=== PATIENT | female | born 1975 | race Caucasian/White ===

== ENCOUNTER → 2023-06-11 | Day surgery (SDC) | payer BC, OTHER | END | disposition home or self-care (01) | LOC: JRADIR 10:17 | PROVIDERS: ATTEND Internal Medicine Endocrinology, Diabetes & Metabolism | PROC: 0G9K3ZX Drainage of Thyroid Gland, Percutaneous Approach, Diagnostic (ICD-10-PCS; principal; 2023-06-11) | DX: E04.1 Nontoxic single thyroid nodule (principal) | CPT/HCPCS: 10005; 76942; 88173; 88305-TC ==

== ENCOUNTER 2023-06-16 23:12 | Emergency (ER) | payer OTHER ==
[2023-06-16 23:31] VITALS: BP 135/78; PULSE 120; RESP 20; TEMP 98.9; BMI 33.0
[2023-06-16] MEDS ORDERED: KETOROLAC TROMETHAMINE 30 MG/1 ML VIAL ONE (23:55)
[2023-06-16] MEDS ORDERED: KETOROLAC TROMETHAMINE 30 MG/1 ML VIAL IM ONE (23:55)
== END 2023-06-17 00:57 | disposition home or self-care (01) ==
LOC: JER 23:12 → JERFT 23:12
PROC: 3E0233Z Introduction of Anti-inflammatory into Muscle, Percutaneous Approach (ICD-10-PCS; principal; 2023-06-16)
DX: U07.1 COVID-19 (principal)
CPT/HCPCS: 0241U-QW; 99284-25

== ENCOUNTER 2023-06-19 06:12 | Emergency (ER) | payer OTHER ==
[2023-06-19 06:50] VITALS: RESP 20; BMI 32.7
[2023-06-19] MEDS ORDERED: ONDANSETRON 4 MG/2 ML VIAL IVPUSH ONE ×2 (07:26→07:40)
[2023-06-19] MEDS ORDERED: ACETAMINOPHEN 1000 MG/100 ML BAG IVPB ONE (07:26)
[2023-06-19] MEDS ORDERED: FAMOTIDINE 20 MG/50 ML IVPB 20 MG/50 ML MG IVPB ONE ×2 (07:35→07:46)
[2023-06-19] MEDS ORDERED: LACTATED RINGERS SOLUTION 1000 ML INFUS.BAG IV ONE (07:45)
[2023-06-19] MEDS ORDERED: ACETAMINOPHEN INJECTION 100 ML IVPB ONE (07:46)
[2023-06-19] MEDS ORDERED: ONDANSETRON 4 MG/2 ML VIAL ONE (07:46)
[2023-06-19] MEDS ORDERED: MAG HYDROX/AL HYDROX/SIMETH 30 ML UNIT-DOSE CUP PO ONE (08:12)
[2023-06-19] MEDS ORDERED: SUCRALFATE 1 GM TABLET (FP) PO ONE (08:14)
[2023-06-19] MEDS ORDERED: SUCRALFATE 1 GM TABLET (FP) ONE (08:23)
[2023-06-19] MEDS ORDERED: MAG HYDROX/AL HYDROX/SIMETH 30 ML UNIT-DOSE CUP ONE (08:24)
[2023-06-19 08:30] LABS: BASO % 0.2 % (0-2.0); HEMATOCRIT 35.9 % (32.4-45.2); HEMOGLOBIN 11.6 GM/dL (10.7-15.3); LYMPH % 20.7 % (8-40); MCH 25.8 pg (25.7-33.7); MCHC 32.3 g/dl (32.0-36.0); MEAN CELL VOLUME 80.1 fl (80-96); MEAN PLT VOLUME 8.4 fl (7.5-11.1); MONO % 7.7 % (3.8-10.2); NEUT % 71.4 % (42.8-82.8); PLATELET COUNT 345 10^3/uL (134-434); RBC 4.49 M/mm3 (3.60-5.2); RDW 17.7 % (11.6-15.6); WHITE BLOOD COUNT 6.8 K/mm3 (4.0-10.0)
[2023-06-19 08:47] LABS: POTASSIUM 3.5 mmol/L (3.5-5.1)
[2023-06-19 08:49] LABS: CALCIUM 8.3 mg/dL (8.5-10.1)
[2023-06-19 08:51] LABS: ALBUMIN 3.3 g/dl (3.4-5.0); BLOOD UREA NITROGEN 7.7 mg/dL (7-18); MAGNESIUM 1.9 mg/dL (1.8-2.4)
[2023-06-19 08:53] LABS: CREATININE 0.7 mg/dL (0.55-1.3)
[2023-06-19 08:54] LABS: BILIRUBIN,TOTAL 0.3 mg/dL (0.2-1); TOT PROT 7.1 g/dl (6.4-8.2)
[2023-06-19 09:25] LABS: EPI CELLS 23 /uL (0-25.1); HYALINE CASTS 0 /uL (0-3.1); URINE APPEARANCE CLEAR; URINE BACTERIA 7 /uL (0-1359); URINE BILIRUBIN NEGATIVE (NEGATIVE); URINE COLOR YELLOW; URINE GLUCOSE (UA) NEGATIVE (NEGATIVE); URINE KETONE NEGATIVE (NEGATIVE); URINE LEUK ESTERASE NEGATIVE (NEGATIVE); URINE NITRITE NEGATIVE (NEGATIVE); URINE PROTEIN NEGATIVE (NEGATIVE); URINE RBC 29 /uL (0-23.9); URINE UROBILINOGEN 0.2 mg/dL (0.2-1.0); URINE WBC 12 /uL (0-25.8)
[2023-06-19 11:29] VITALS: TEMP 98
[2023-06-19 13:36] VITALS: BP 106/71; PULSE 71
== END 2023-06-19 13:36 | disposition home or self-care (01) ==
LOC: JER 06:12
PROC: 3E033GC Introduction of Other Therapeutic Substance into Peripheral Vein, Percutaneous Approach (ICD-10-PCS; principal; 2023-06-19)
PROC: 3E033NZ Introduction of Analgesics, Hypnotics, Sedatives into Peripheral Vein, Percutaneous Approach (ICD-10-PCS; 2023-06-19)
PROC: 3E033GC Introduction of Other Therapeutic Substance into Peripheral Vein, Percutaneous Approach (ICD-10-PCS; 2023-06-19)
DX: R11.2 Nausea with vomiting, unspecified (principal); R19.7 Diarrhea, unspecified; R10.13 Epigastric pain; U07.1 COVID-19; K29.00 Acute gastritis without bleeding; R09.81 Nasal congestion; R07.0 Pain in throat; R50.9 Fever, unspecified; K62.5 Hemorrhage of anus and rectum; R51.9 Headache, unspecified; R53.1 Weakness; R53.81 Other malaise
CPT/HCPCS: 0241U-QW; 36415; 71045-TC-FY; 76705-TC; 80053; 81003; 83690; 83735; 84703; 85025; 87086; 93005; 93010; 99285-25

== ENCOUNTER 2023-09-13 10:51 | Emergency (ER) | payer OTHER ==
[2023-09-13 10:57] VITALS: BMI 33.2
[2023-09-13] MEDS ORDERED: ACETAMINOPHEN 500 MG TABLET (FP) PO ONE (11:54)
[2023-09-13] MEDS ORDERED: ACETAMINOPHEN 500 MG TABLET (FP) ONE (11:59)
[2023-09-13] MEDS ORDERED: SODIUM CHLORIDE 0.9% 1000 ML INFUS.BAG IV ONE (12:09)
[2023-09-13] MEDS ORDERED: METOCLOPRAMIDE HCL INJECTION 10 MG/2 ML VIAL IVPUSH ONE (12:09)
[2023-09-13] MEDS ORDERED: METOCLOPRAMIDE HCL INJECTION 10 MG/2 ML VIAL ONE (12:17)
[2023-09-13 12:48] LABS: VENOUS BASE EXCESS -1.5 mmol/L (-2-2); VENOUS O2 SATURATION 80.9 % (70-80); VENOUS PCO2 43.4 mmHg (38-52); VENOUS PH 7.361 (7.310-7.410)
[2023-09-13 12:50] LABS: BASO % 0.4 % (0-2.0); EOS % 0.1 % (0-4.5); HEMATOCRIT 35.2 % (32.4-45.2); HEMOGLOBIN 11.4 GM/dL (10.7-15.3); LYMPH % 8.7 % (8-40); MCH 25.6 pg (25.7-33.7); MCHC 32.3 g/dl (32.0-36.0); MEAN CELL VOLUME 79.3 fl (80-96); MEAN PLT VOLUME 7.9 fl (7.5-11.1); MONO % 4.6 % (3.8-10.2); NEUT % 86.2 % (42.8-82.8); PLATELET COUNT 449 10^3/uL (134-434); RBC 4.44 M/mm3 (3.60-5.2); RDW 16.6 % (11.6-15.6); WHITE BLOOD COUNT 12.4 K/mm3 (4.0-10.0)
[2023-09-13 12:52] LABS: PH,URINE 5.5 (5.0-8.0); URINE APPEARANCE CLEAR; URINE BILIRUBIN NEGATIVE (NEGATIVE); URINE COLOR YELLOW; URINE GLUCOSE (UA) NEGATIVE (NEGATIVE); URINE KETONE NEGATIVE (NEGATIVE); URINE LEUK ESTERASE NEGATIVE (NEGATIVE); URINE NITRITE NEGATIVE (NEGATIVE); URINE PROTEIN NEGATIVE (NEGATIVE); URINE UROBILINOGEN 0.2 mg/dL (0.2-1.0)
[2023-09-13 13:15] LABS: INR 1.02 (0.83-1.09); PROTHROMBIN TIME (PATIENT) 11.8 SEC (9.7-13.0)
[2023-09-13 13:18] LABS: ACTIVATED PTT 23.2 SECONDS (25.2-36.5)
[2023-09-13 13:51] LABS: POTASSIUM 3.8 mmol/L (3.5-5.1)
[2023-09-13 13:53] LABS: CALCIUM 8.7 mg/dL (8.5-10.1)
[2023-09-13 13:54] LABS: ALBUMIN 3.6 g/dl (3.4-5.0); BLOOD UREA NITROGEN 14.3 mg/dL (7-18); MAGNESIUM 2.3 mg/dL (1.8-2.4)
[2023-09-13 13:57] LABS: CREATININE 0.9 mg/dL (0.55-1.3)
[2023-09-13 13:58] LABS: BILIRUBIN,TOTAL 0.6 mg/dL (0.2-1)
[2023-09-13 13:59] LABS: TOT PROT 7.6 g/dl (6.4-8.2)
[2023-09-13] MEDS ORDERED: LACTATED RINGERS SOLUTION 1000 ML INFUS.BAG IV ONE (14:38)
[2023-09-13 15:14] VITALS: RESP 20
[2023-09-13 16:15] VITALS: TEMP 98
[2023-09-13 16:49] VITALS: BP 109/68; PULSE 82
== END 2023-09-13 17:14 | disposition home or self-care (01) ==
LOC: JER 10:51
PROC: 3E033GC Introduction of Other Therapeutic Substance into Peripheral Vein, Percutaneous Approach (ICD-10-PCS; principal; 2023-09-13)
DX: R42 Dizziness and giddiness (principal); I95.9 Hypotension, unspecified; R00.2 Palpitations; R11.0 Nausea; R00.0 Tachycardia, unspecified; Z20.822 Contact with and (suspected) exposure to COVID-19
CPT/HCPCS: 0241U-QW; 36415; 71045-TC-FY; 71275-TC; 80053; 81003; 82803; 83605; 83735; 84443; 84484; 84703; 85025; 85379; 85610; 85730; 93005; 93010; 99285-25

== ENCOUNTER 2024-09-08 04:18 | Day surgery (SDC) | payer OTHER ==
[2024-09-06 13:37] VITALS: BMI 31.7
[2024-09-08 08:49] LABS: BASO % 0.6 % (0-2.0); EOS % 1.7 % (0-4.5); HEMATOCRIT 35.6 % (32.4-45.2); HEMOGLOBIN 11.1 GM/dL (10.7-15.3); LYMPH % 27.9 % (8-40); MCH 23.9 pg (25.7-33.7); MCHC 31.3 g/dl (32.0-36.0); MEAN CELL VOLUME 76.3 fl (80-96); MEAN PLT VOLUME 8.1 fl (7.5-11.1); MONO % 7.8 % (3.8-10.2); PLATELET COUNT 434 10^3/uL (134-434); RBC 4.66 M/mm3 (3.60-5.2); RDW 24.1 % (11.6-15.6); WHITE BLOOD COUNT 6.7 K/mm3 (4.0-10.0)
[2024-09-08 08:53] LABS: INR 1.02 (0.83-1.09); PROTHROMBIN TIME (PATIENT) 11.5 SEC (9.7-13.0)
[2024-09-08] MEDS ORDERED: MIDAZOLAM HCL 2 MG/2 ML SINGLE DOSE VIAL ONE (09:41)
[2024-09-08] MEDS ORDERED: FENTANYL CITRATE/PF 50 MCG/ML VIAL ONE (09:42)
[2024-09-08 10:07] LABS: ANISOCYTOSIS 2+; MACROCYTOSIS 1+
[2024-09-08] MEDS: FENTANYL CITRATE/PF 50 MCG/ML VIAL IVPUSH ONE (10:30)
[2024-09-08] MEDS: MIDAZOLAM HCL 2 MG/2 ML SINGLE DOSE VIAL IVPUSH ONE (10:30)
[2024-09-08 14:12] VITALS: BP 114/76; PULSE 84; RESP 20; TEMP 98
== END 2024-09-08 14:12 | disposition home or self-care (01) ==
LOC: JRADIR 04:18
PROVIDERS: ATTEND Internal Medicine Gastroenterology
PROC: 0FB03ZX Excision of Liver, Percutaneous Approach, Diagnostic (ICD-10-PCS; principal; 2024-09-08)
DX: K83.09 Other cholangitis (principal); K74.00 Hepatic fibrosis, unspecified
CPT/HCPCS: 36415; 47000; 76705-TC; 76942-TC; 84703; 85025; 85610; 87899; 88307-TC; 88313-TC